=== PATIENT | male | born 1975 | race Caucasian/White ===

== ENCOUNTER 2020-12-28 09:46 | Day surgery (SDC) | payer BC, MEDICAID, OTHER ==
[2020-12-28] MEDS ORDERED: diphenhydrAMINE 50 MG/ML SDV IVPUSH PRN (10:31)
[2020-12-28] MEDS ORDERED: Hydrocortisone Sodium Succinate 100 MG/2 ML SDV IVPUSH PRN (10:31)
[2020-12-28] MEDS ORDERED: Famotidine 20 MG/2 ML SDV IVPUSH PRN (10:31)
[2020-12-28] MEDS ORDERED: Acetaminophen 325 MG Tab PO PRN (10:31)
[2020-12-28] MEDS ORDERED: Dextrose 5%-Lactated Ringers 1,000 ML IV SCH (10:45)
[2020-12-28] MEDS ORDERED: Midazolam 1 MG/ML 2 ML SDV ONE (10:50)
[2020-12-28] MEDS ORDERED: Glycopyrrolate 0.2 MG/ML 2 ML SDV IVPUSH ONE (11:00)
[2020-12-28] MEDS ORDERED: fentaNYL 100 MCG/2 ML SDV ONE (11:13)
[2020-12-28] MEDS ORDERED: Propofol 200 MG/20 ML SDV ONE (11:13)
[2020-12-28 14:58] VITALS: BP 135/84; PULSE 112
--- NOTE | 2021-01-03 14:07 | OR ---
DATE OF PROCEDURE: 12/28/2020 SURGEON: Jamaal Kumari MD PREOPERATIVE DIAGNOSIS: Heartburn and weight regain status post Jenny-en-Y gastric bypass. 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 PROCEDURE PERFORMED: Upper gastrointestinal endoscopy with biopsy of the gastric pouch for CLOtest. ANESTHESIA: IV sedation. INDICATION FOR PROCEDURE: This is a 45-year-old male presenting status post previous Jenny- en-Y gastric bypass with worsening heartburn along with significant weight regain. The plan is to proceed with an upper GI endoscopy for diagnostic purposes. Potential risks including bleeding and perforation were discussed, and the patient wishes to proceed. DETAILS OF PROCEDURE: The patient was taken to the operating room and placed in a left lateral decubitus position. IV sedation was administered after which the upper GI endoscope was passed orally through the length of the esophagus into the gastric pouch, and from there, through the gastrojejunostomy roughly 20 cm into the Jenny limb. Gastric pouch was noted to be somewhat enlarged beginning around 8 cm from the gastrojejunostomy to the esophagogastric junction. There was quite a bit of redness and some bile reflux present. This was associated with a gastrogastric fistula with the scope not quite being able to be passed through that area. The combined findings of the large pouch and the gastrogastric fistula likely account for the patient's symptoms and would warrant a revisional procedure. Biopsies were obtained from the gastric pouch and sent for CLOtest for H pylori. Following this, minimal bleeding was noted, and the patient was taken to the recovery room in satisfactory condition. Plan will be to address the patient's insurance carriers regarding prior authorization for revisional procedure. Jamaal Kumari MD /[id number]
== END 2020-12-28 15:51 | disposition home or self-care (01) ==
LOC: JP.SDS 09:46
PROVIDERS: ATTEND Surgery
DX: K31.6 Fistula of stomach and duodenum (principal); K21.9 Gastro-esophageal reflux disease without esophagitis; K91.2 Postsurgical malabsorption, not elsewhere classified; D50.8 Other iron deficiency anemias; J45.909 Unspecified asthma, uncomplicated; G47.33 Obstructive sleep apnea (adult) (pediatric); E66.01 Morbid (severe) obesity due to excess calories; Z68.33 Body mass index [BMI] 33.0-33.9, adult; Z98.84 Bariatric surgery status; Z86.010 Personal history of colon polyps
CPT/HCPCS: 43239; 87081; J2250; J2704; J3010; J3490; J7121; Q0138

== ENCOUNTER 2021-02-01 08:38 | Inpatient (IN) | payer OTHER ==
[~2021-02-01 08:38] MED LIST: Bupivacaine 0.5%/EPINEPHrine 1:200,000 50 ML MDV ONE; cefOXitin 2 GM Vial ONE
[2021-02-01] MEDS ORDERED: fentaNYL 250 MCG/5 ML SDV ONE ×3 (08:44→13:04)
[2021-02-01] MEDS ORDERED: Neostigmine Methylsulfate 1 MG/ML 5 ML Syringe ONE (08:45)
[2021-02-01] MEDS ORDERED: Rocuronium 50 MG/5 ML Vial ONE ×2 (08:45→13:02)
[2021-02-01] MEDS ORDERED: Ondansetron 4 MG/2 ML SDV ONE (08:45)
[2021-02-01] MEDS ORDERED: Propofol 200 MG/20 ML SDV ONE (08:45)
[2021-02-01] MEDS ORDERED: Glycopyrrolate 0.2 MG/ML 5 ML MDV ONE (08:45)
[2021-02-01] MEDS ORDERED: Succinylcholine 200 MG/10 ML MDV ONE ×2 (08:45→14:01)
[2021-02-01] MEDS ORDERED: Dexamethasone 4 MG/ML SDV ONE (08:45)
[2021-02-01] MEDS ORDERED: Scopolamine 1.5 MG Transdermal Patch TOP SCH (09:00)
[2021-02-01] MEDS ORDERED: Acetaminophen 500 MG Tab PO ONE (09:00)
[2021-02-01] MEDS ORDERED: Celecoxib 200 MG Cap PO ONE (09:00)
[2021-02-01] MEDS ORDERED: Dextrose 5%-Lactated Ringers 1,000 ML IV SCH ×2 (09:30→16:45)
[2021-02-01] MEDS ORDERED: cefOXitin 2 GM in Sodium Chloride 0.9% 50 ML IV ONE (10:00)
[2021-02-01] MEDS ORDERED: Ketamine 50 MG in Sodium Chloride 0.9% 49.5 ML IV SCH (10:30)
[2021-02-01] MEDS ORDERED: Ketamine 500 MG/5 ML MDV IV SCH (10:45)
[2021-02-01] MEDS ORDERED: Magnesium Sulfate 3.5 GM in Sodium Chloride 0.9% 250 ML IV ONE (10:45)
[2021-02-01] MEDS ORDERED: Magnesium Sulfate 3.2 GM in Sodium Chloride 0.9% 100 ML IV SCH (10:45)
[2021-02-01] MEDS ORDERED: Lactated Ringers 1,000 ML ONE ×2 (11:19→13:28)
[2021-02-01] MEDS ORDERED: hydrOXYzine HCL 100 MG/2 ML SDV IM ONE (13:43)
[2021-02-01] MEDS ORDERED: fentaNYL 100 MCG/2 ML SDV ONE (15:06)
[2021-02-01] MEDS ORDERED: Ondansetron 4 MG/2 ML SDV IVPUSH PRN (17:00)
[2021-02-01] MEDS ORDERED: HYDROmorphone 0.5 MG/0.5 ML Syringe IVPUSH PRN (17:00)
[2021-02-01] MEDS ORDERED: Labetalol 20 MG/4 ML Syringe IVPUSH PRN (17:00)
[2021-02-01] MEDS ORDERED: hydrOXYzine HCL 100 MG/2 ML SDV IM PRN (17:00)
[2021-02-01] MEDS ORDERED: Pantoprazole 40 MG Vial IVPUSH SCH (17:00)
[2021-02-01] MEDS ORDERED: Calcium Gluconate 10% 1 GM/10 ML SDV IVPUSH PRN (17:00)
[2021-02-01] MEDS ORDERED: Acetaminophen 500 MG Tab PO PRN (17:00)
[2021-02-01] MEDS ORDERED: Metoclopramide 10 MG/2 ML SDV IVPUSH PRN (17:00)
[2021-02-01] MEDS ORDERED: HYDROmorphone 1 MG/ML Syringe IV PRN (17:00)
[2021-02-01] MEDS ORDERED: diphenhydrAMINE 50 MG/ML SDV IVPUSH PRN (17:00)
[2021-02-01] MEDS ORDERED: MVI, Adult with Vitamin K 10 ML, Thiamine 200 MG, Zinc/Copper/Manganese/Selenium 1 ML i... IV SCH ×4 (18:00)
[2021-02-01] MEDS: Acetaminophen 500 MG Tab PO SCH (18:24)
[2021-02-01] MEDS: Heparin Sodium 5,000 Units/ML Vial SUBCUT SCH (18:24)
[2021-02-01] MEDS: cefOXitin 2 GM in Sodium Chloride 0.9% 50 ML IV SCH ×2 (18:40→23:00)
[2021-02-01] MEDS: oxyCODONE 5 MG Tab PO PRN (22:56)
[2021-02-02] MEDS: traMADol 50 MG Tab PO PRN ×2 (01:38→08:30)
[2021-02-02] MEDS: Acetaminophen 500 MG Tab PO SCH ×3 (01:41→17:33)
[2021-02-02] MEDS ORDERED: Iopamidol 612 MG/ML 50 ML SDV PO ONE (01:56)
[2021-02-02] MEDS: oxyCODONE 5 MG Tab PO PRN ×3 (05:50→19:16)
[2021-02-02] MEDS: cefOXitin 2 GM in Sodium Chloride 0.9% 50 ML IV SCH ×4 (05:51→23:20)
[2021-02-02] MEDS: Heparin Sodium 5,000 Units/ML Vial SUBCUT SCH ×2 (05:51→17:28)
[2021-02-02] MEDS ORDERED: Ondansetron 4 MG Tab.DIS PO PRN (07:00)
[2021-02-02] MEDS: Celecoxib 200 MG Cap PO SCH ×2 (08:31→22:00)
[2021-02-02] MEDS: Dextrose 5%-Lactated Ringers 1,000 ML IV SCH (08:32)
[2021-02-02] MEDS: Sodium Ferric Gluconate Cmplex 250 MG in Sodium Chloride 0.9% 100 ML IV SCH (08:45)
[2021-02-02] MEDS: SCOPOLAMINE PATCH CHECK TOP SCH (08:49)
[2021-02-02] MEDS: Sertraline 50 MG Tab PO SCH ×2 (08:50→08:52)
--- NOTE | 2021-02-02 09:02 | CR ---
[facility] [employer] HISTORY: Postbariatric surgery FINDINGS: Patient swallowed water-soluble contrast. Upright views of the abdomen show no evidence of extravasation or obstruction. There are surgical drains in the left upper quadrant IMPRESSION: Status post bariatric surgery No extravasation or obstruction seen
--- NOTE | 2021-02-02 10:20 | PN ---
DATE OF SERVICE: 02/02/2021 SUBJECTIVE: Clay is postop day #1. Vital signs have been stable. He has been up, ambulating. Oral intake 200. Output via Tavera catheter is 1905. JOSE drains have put out 55 and 45 of a light red drainage respectively. Pain has been controlled. Upper GI 1 more film will be taken. There remains to be some contrast in upper area. REVIEW OF SYSTEMS: Remainder of review of systems negative for any pertinent positives and negatives. OBJECTIVE: GENERAL: Clay is a pleasant 46-year-old male. He is alert, orientated. VITAL SIGNS: TPR 97.1, 74, 16, blood pressure 111/66. HEENT: Negative. NECK: Supple. HEART: Regular rate and rhythm. LUNGS: Clear. ABDOMEN: Dressings dry and intact. Abdominal binder is on. JOSE drains as above. EXTREMITIES: Without peripheral edema. ASSESSMENT: Diagnostic laparoscopy with: 1. Proximal gastrectomy with Jenny-en-Y gastrojejunostomy. 2. Closure of gastrogastric fistula. 3. Repair of recurrent paraesophageal hernia. 4. Upper GI with dilation mid esophagus stricture. POSTOPERATIVE DIAGNOSES: 1. Recurrent morbid obesity. 2. Large gastric pouch and gastrogastric fistula. 3. Recurrent paraesophageal hernia. 4. Stricture mid esophagus. 5. Date of procedure: 02/01/2021. 6. Low ferritin. PLAN: 1. Recheck abdominal film to make sure that the contrast is out of upper portion of the GI system. 2. Continue step 1 gastric bypass diet. 3. Decrease IV to 100 mL per hour. 4. Discontinue Tavera catheter. 5. Dressing off, may shower. 6. Communication order written that to drink 3 med cups per hour and record at bedside. 7. Discontinue cardiac monitoring. 8. Discontinue continuous pulse ox. 9. We will evaluate p.r.n. or in a.m. Tavia García PA-C /[id number]
[2021-02-02] MEDS: Pantoprazole 40 MG Delayed-Release Granules 1 Packet PO SCH (16:21)
[2021-02-02] MEDS ORDERED: MVI, Adult with Vitamin K 10 ML, Thiamine 200 MG, Zinc/Copper/Manganese/Selenium 1 ML i... IV SCH ×4 (18:00)
[2021-02-02] MEDS: traZODone 50 MG Tab PO PRN (22:00)
[2021-02-03] MEDS: oxyCODONE 5 MG Tab PO PRN ×3 (01:14→18:15)
[2021-02-03] MEDS: Acetaminophen 500 MG Tab PO SCH ×3 (01:14→18:24)
[2021-02-03] MEDS: Dextrose 5%-Lactated Ringers 1,000 ML IV SCH (03:38)
[2021-02-03] MEDS: cefOXitin 2 GM in Sodium Chloride 0.9% 50 ML IV SCH ×3 (05:49→18:15)
[2021-02-03] MEDS: Heparin Sodium 5,000 Units/ML Vial SUBCUT SCH ×2 (05:49→18:25)
[2021-02-03] MEDS: Cyclobenzaprine 10 MG Tab PO PRN ×2 (07:29→16:28)
[2021-02-03] MEDS: Sodium Ferric Gluconate Cmplex 250 MG in Sodium Chloride 0.9% 100 ML IV SCH (08:48)
[2021-02-03] MEDS: Sertraline 50 MG Tab PO SCH (08:51)
[2021-02-03] MEDS: Celecoxib 200 MG Cap PO SCH ×2 (08:52→22:05)
[2021-02-03] MEDS ORDERED: Cyanocobalamin (Vitamin B12) 1,000 MCG/ML SDV IM ONE (09:00)
--- NOTE | 2021-02-03 09:04 | PN ---
DATE OF SERVICE: 02/03/2021 HISTORY: Clay states that he tolerated step 1 diet well. He has had a total of 1410 in and urine output 1175. JOSE drains put out 140 and 145 respectively. He has been up ambulating, reporting some muscle spasms at his incision site. States that he did have quite a bit of gas buildup during the night, but started passing gas and that has improved. He has no other concerns or questions. REVIEW OF SYSTEMS: Remainder of review of systems negative for any pertinent positives and negatives. OBJECTIVE: GENERAL: Clay is a pleasant 46-year-old male. He is alert and orientated. VITAL SIGNS: TPR is 97.3, 81, 16, and blood pressure 109/65. HEENT: Negative. NECK: Supple. HEART: Regular rate and rhythm. LUNGS: Clear. ABDOMEN: Dressings dry and intact. JOSE drains as above, draining a serosanguineous drainage. EXTREMITIES: Without peripheral edema. ASSESSMENT: Diagnostic laparoscopy with: 1. Proximal gastrectomy with Jenny-en-Y gastrojejunostomy. 2. Closure of gastrogastric fistula. 3. Repair of recurrent paraesophageal hernia. 4. Upper gastrointestinal with dilation of mid esophagus stricture. POSTOPERATIVE DIAGNOSES: 1. Recurrent morbid obesity. 2. Large gastric pouch and gastrogastric fistula. 3. Stricture mid esophagus. DATE OF PROCEDURE: 02/01/2021. Low ferritin, receiving 2 doses of IV iron. PLAN: Step 2 gastric bypass diet without cereal. Saline lock IV. Continue ambulation and use of incentive spirometer. Plan discharge in a.. Tavia García PA-C /[id number]
[2021-02-03] MEDS: SCOPOLAMINE PATCH CHECK TOP SCH (09:12)
[2021-02-03] MEDS: Pantoprazole 40 MG Delayed-Release Granules 1 Packet PO SCH (17:19)
[2021-02-03] MEDS: traZODone 50 MG Tab PO PRN (22:05)
[2021-02-04] MEDS: cefOXitin 2 GM in Sodium Chloride 0.9% 50 ML IV SCH ×2 (00:26→05:00)
[2021-02-04] MEDS: Cyclobenzaprine 10 MG Tab PO PRN ×2 (00:35→10:27)
[2021-02-04] MEDS: Acetaminophen 500 MG Tab PO SCH ×2 (01:08→10:28)
[2021-02-04] MEDS: Heparin Sodium 5,000 Units/ML Vial SUBCUT SCH (05:01)
[2021-02-04] MEDS: oxyCODONE 5 MG Tab PO PRN ×2 (05:07→11:12)
[2021-02-04 07:36] VITALS: BP 118/72; PULSE 65
[2021-02-04] MEDS: Celecoxib 200 MG Cap PO SCH (10:28)
[2021-02-04] MEDS: Sertraline 50 MG Tab PO SCH (10:28)
--- NOTE | 2021-02-04 15:40 | DISCH ---
ADMISSION DIAGNOSES: 1. Gastrogastric fistula. 2. Recurrent morbid obesity. 3. History of Jenny-en-Y gastric bypass surgery. 4. Asthma. 5. Dyslipidemia. 6. Sleep apnea. 7. Depression. DISCHARGE DIAGNOSES: 1. Diagnostic laparoscopy with: a. Proximal gastrectomy with Jenny-en-Y gastrojejunostomy. b. Repair of gastrogastric fistula. c. Repair of recurrent paraesophageal hernia. d. Upper gastrointestinal with dilation of mid esophageal stricture. 2. Postoperative diagnoses: a. Recurrent morbid obesity. b. Large gastric pouch and gastrogastric fistula. c. Stricture, mid esophagus. d. Date of procedure: 02/01/2021 - Jamaal Kumari MD. 3. Low ferritin, receiving 2 doses of IV iron. HISTORY: Clay Felipe is a 46-year-old male, who had a history of Jenny-en-Y gastric bypass surgery approximately 7 years ago. He had recurrent weight regain and after preoperative evaluation and discussion of possible risks and possible complications, he wished to proceed with surgical procedure. HOSPITAL COURSE: Clay had his surgery on 02/01/2021. He had no operative complications. On postop day #1, he was started on a step 1 gastric bypass diet. His IV was decreased to 100 mL per hour. He was ambulating. Pain was managed with oral oxycodone. Upper GI was normal. On postoperative day #2, he was started on step 2 gastric bypass diet without cereal. IV was saline locked. Pain was controlled. Vital signs stable, and he received vitamin B12 1000 mcg IM. On postoperative day #3, he was able to be discharged to home without any complications. He did have a bowel movement. Oral intake was 1290. Urine output 3200. Vital signs stable. Afebrile. He was ambulating using the incentive spirometer. He had adequate dietary instruction and he was able to be discharged to home. PHYSICAL EXAMINATION: GENERAL: Caly Felipe is a pleasant 46-year-old male. VITAL SIGNS: Height is 5 feet 10 inches, weight is 241 pounds 12.8 ounces, BMI 34. TPR 97.5, 65, 16, blood pressure 118/72. HEENT: Negative. NECK: Supple. HEART: Regular rate and rhythm. LUNGS: Clear. ABDOMEN: Two JOSE drains are intact. These will be removed prior to discharge. Trocar incisions look good. Sutures intact. Abdominal binder has been on. EXTREMITIES: Without peripheral edema. DISPOSITION: Discharged to home. CONDITION: Stable and improving. FOLLOWUP APPOINTMENT: Tavia García PA-C, at [facility], 02/14/2021 at 11:15 a.m. HOME MEDICATIONS: 1. Celebrex 200 mg p.o. b.i.d. #28. 2. Flexeril 10 mg p.o. q.8 hours p.r.n. muscle spasms #30. 3. Oxycodone 5 mg p.o. q.6 hours p.r.n. severe pain #12. 4. He is to take Tylenol 1000 mg q.8 hours scheduled. 5. Sertraline 250 mg p.o. daily. 6. Protonix 40 mg p.o. daily. 7. Trazodone 150 mg p.o. bedtime p.r.n. 8. Stop all vitamins and supplements until after first postop appointment. DIET: Step 2 gastric bypass diet with no cereal until 02/15/2021. Drink 8 to 10 glasses of water a day. ACTIVITY: No lifting greater than 10 pounds for 2 weeks. OTHER ACTIVITY: Walk 6 times daily. Driving: Do not drive for 1 week. Shower/bathing: May shower. INSTRUCTIONS: Keep operative sites clean and dry. Wear abdominal binder for 2 weeks and then as tolerated. Notify provider if any fever, increased pain, swelling, redness, drainage, nausea, vomiting. OTHER INSTRUCTIONS: Use incentive spirometer 10 times every hour while awake. For every hour while riding in the car, recommend walk 3 minutes. /[id number]
--- NOTE | 2021-02-19 12:55 | OR ---
DATE OF PROCEDURE: 02/01/2021 SURGEON: Jamaal Kumari MD PREOPERATIVE DIAGNOSES: Recurrent morbid obesity associated with large gastric pouch and gastrogastric fistula. POSTOPERATIVE DIAGNOSES: 1. Recurrent morbid obesity associated with large gastric pouch and gastrogastric fistula. 2. Recurrent paraesophageal diaphragmatic hernia. 3. Stricture at mid esophagus. OPERATIVE PROCEDURES: 1. Diagnostic laparoscopy with: a. Proximal gastrectomy with Jenny-en-Y gastrojejunostomy (02967). b. Closure of gastrogastric fistula (34007). c. Repair of recurrent paraesophageal diaphragmatic hernia (40595). 2. Upper GI endoscopy with dilation of mid esophageal stricture (79363). ANESTHESIA: General. GRANT OFFICER: Tavia ALEXANDER. INDICATION FOR PROCEDURE: This is a 46-year-old male presenting with recurrent morbid obesity with recent workup showed a quite large gastric pouch along with an element of gastrogastric fistula. Plan is to proceed with diagnostic laparoscopy, laparotomy if necessary, and resection of the proximal gastric pouch along with closure of the gastrogastric fistula, and reconstruction by means of the Jenny-en-Y gastrojejunostomy. Potential risks of the procedure including bleeding, infection, leaks from various GI tract closures, problems with bowel obstruction over time, stricturing at the gastrojejunostomy as well as possibility of cardiopulmonary, septic, or hemorrhagic complications leading to were all discussed, and the patient wishes to proceed. DETAILS OF PROCEDURE: The patient was taken to the operating room and placed in a supine position. After general endotracheal anesthesia was induced converted to a lithotomy position and the Tavera catheter was inserted. The abdomen was then prepped and draped. 15 cm inferior and 5 cm left of the xiphoid process a transverse incision was made and the peritoneal cavity entered under direct vision with an Optiview trocar, inflated to 15 mmHg pressure of CO2. The laparoscope was then reinserted. No underlying trocar insertion site injuries were seen. Following this, 5 additional trocars were placed across the upper and mid abdomen and general exploration was undertaken. Some adhesions between the liver and the area of the gastrojejunostomy and gastric pouch were then taken down following exposure of those areas. Area of dissection began along the blind end of the Jenny limb and it continued upward along the edges of the gastrojejunostomy and gastric pouch on the left side, removing some omental adhesions and such. Further dissection then continued on the right side beginning just distal to the gastrojejunostomy and along the right side of the gastrojejunostomy up along the right side of the gastric pouch. At that point, the small bowel was then divided more or less flush with the gastrojejunostomy with the ML austin load. As the complex was elevated, the area of fistula formation was noted to be more or less right at the gastrojejunostomy extending posteriorly into the bypassed stomach, which was then divided with a ML black load. Further dissection then continued proximally and a roughly 10 mm pouch was then constructed with division of the proximal stomach with ML black loads and the specimen consisting of the proximal stomach and the gastrojejunostomy was then delivered from the field. The patient was noted to have a significant paraesophageal hernia. This was closed posteriorly with some 0 Vicryl sutures, reinforced with PTFE pledgets. At this point, an anvil of 25 mm EEA stapler was attached to Sumner sump tube, and the latter was brought down into the gastric pouch. The sump tube was then brought out through small opening in the proximal gastric pouch. This could be pulled down to somewhere in the mid esophagus, but not pulled down beyond that. It was notable on his first operation, he needed to have an intraoperative esophageal dilation to allow anvil placement. The anvil was then removed along with the tube via the rescue sutures attached to the anvil. Upper endoscopy was then accomplished with the gastroscope being passed orally down to the level of the mid esophagus. The scope could actually be passed through the entire length of the esophagus and into the gastric pouch. There appeared to be narrowing in the area just below the upper esophageal sphincter. The upper esophageal sphincter itself was easily traversed. A 54-Ukrainian balloon dilator was then deployed across the upper third of the esophagus, held in position for 1 minute, after which balloon catheter was deflated and withdrawn. The 25 mm EEA anvil was then once again passed as the Sumner sump tube. This once again could not be passed through the area of the stricturing despite the dilation. We then retrieved that and switched over to a 21 mm EEA stapler. That tube and anvil were able to be passed pulling the anvil down to and within the gastric pouch. Some adhesions remaining in the Jenny limb was then taken down allowing it to come up to the proximal gastrectomy staple line without tension and the stapler was then passed through a small opening in the end of the Jenny limb, brought up to the anvil, united with it thus creating the gastrojejunostomy. Upon removal of stapler, double donuts of mucosa were noted within it, and small bowel was closed off with a vascular staple line. Gastrojejunostomy was reinforced with some 3-0 Vicryl seromuscular stitch along with fibrin sealant. A leak test was accomplished with no leaks identified with injection of 120 mL of air in the gastric pouch while it was submerged within antibiotic-containing saline solution. A single Marco-Goldstein drain was then placed adjacent to the gastrojejunostomy, taken out of the left lateral trocar site, and the patient was taken to the recovery room in satisfactory condition. There were no evident complications. Physician clothing sales assistant, Tavia García, played an essential role in assisting in this case, helping to position the patient, retract structures as needed, as well as suturing and cutting sutures when indicated. Her presence improved patient safety and decreased operative efficiency. Jamaal Kumari MD /[id number]
== END 2021-02-04 11:30 | disposition home or self-care (01) | DRG 620 ==
LOC: JP.SDS 08:38 → JP.MS 15:00
PROVIDERS: ADMIT Surgery; ATTEND Surgery
PROC: 0D164ZA Bypass Stomach to Jejunum, Percutaneous Endoscopic Approach (ICD-10-PCS; principal; 2021-02-01)
PROC: 0DB64ZZ Excision of Stomach, Percutaneous Endoscopic Approach (ICD-10-PCS; 2021-02-01)
PROC: 0DQ64ZZ Repair Stomach, Percutaneous Endoscopic Approach (ICD-10-PCS; 2021-02-01)
PROC: 0BQT4ZZ Repair Diaphragm, Percutaneous Endoscopic Approach (ICD-10-PCS; 2021-02-01)
DX: E66.01 Morbid (severe) obesity due to excess calories (principal); K31.6 Fistula of stomach and duodenum; Z98.84 Bariatric surgery status; J45.909 Unspecified asthma, uncomplicated; E78.5 Hyperlipidemia, unspecified; G47.30 Sleep apnea, unspecified; F32.9 Major depressive disorder, single episode, unspecified; K22.2 Esophageal obstruction; R79.89 Other specified abnormal findings of blood chemistry; K21.9 Gastro-esophageal reflux disease without esophagitis; Z98.890 Other specified postprocedural states; Z79.899 Other long term (current) drug therapy; Z87.891 Personal history of nicotine dependence
CPT/HCPCS: 36415; 74240; 74240-26; 82947; 86850; 86900; 86901; 88307; 93005; A9270-GY; C9113; J0171; J0330; J0694; J1100; J1644; J2405; J2704; J2710; J2795; J2916; J3010; J3410; J3411; J3420; J3475; J3490; J7030; J7050; J7120; J7121; Q9967